=== PATIENT | male | born 1955 ===

== ENCOUNTER 2021-02-12 06:19 | Day surgery (SDC) | payer OTHER ==
[~2021-02-12 06:19] MED LIST: CORTISPORIN-TC10 ML OT; COZAAR25 MG PO; LEVAQUIN500 MG PO; SIMVASTATIN5 MG PO; ZITHROMAX1 G/PKT PO
== END 2021-02-12 21:09 | disposition home or self-care (01) ==
LOC: CIR.AMB 06:19
PROVIDERS: ATTEND Orthopaedic Surgery Sports Medicine
DX: S83.241A Other tear of medial meniscus, current injury, right knee, initial encounter (principal); M94.261 Chondromalacia, right knee; M65.861 Other synovitis and tenosynovitis, right lower leg; Z20.822 Contact with and (suspected) exposure to COVID-19